=== PATIENT | female | born 1985 | race Two or more races ===

== ENCOUNTER 2017-07-15 20:44 | Emergency (ER) | payer MEDICAID ==
[~2017-07-15] VITALS: Ht 162.6 cm; Wt 79.4 kg
[2017-07-15 22:21] VITALS: BP 118/53
== END 2017-07-16 06:09 | disposition home or self-care (01) ==
LOC: ER 20:44
DX: F91.8 Other conduct disorders (principal)

== ENCOUNTER 2023-05-30 13:48 | Emergency (ER) | payer MEDICAID ==
[~2023-05-30] VITALS: Ht 162.6 cm; Wt 55.8 kg
[2023-05-30 14:07] VITALS: BP 120/67; PULSE 93; RESP 18; TEMP 98.7; O2SAT 97
[2023-05-30] MEDS ORDERED: HYDROcodone-ACET 5/325MG TAB PO ONE (15:45)
[2023-05-30] MEDS ORDERED: TRAM50TA2 PO (15:55)
[2023-05-30] MEDS ORDERED: CLIN-203 PO (15:55)
== END 2023-05-30 16:08 | disposition home or self-care (01) ==
LOC: ER 13:48
DX: G43.009 Migraine without aura, not intractable, without status migrainosus (principal); K04.7 Periapical abscess without sinus; K80.20 Calculus of gallbladder without cholecystitis without obstruction; Z98.890 Other specified postprocedural states